=== PATIENT | female | born 1945 | race Caucasian/White ===

== ENCOUNTER 2016-08-18 10:29 | Emergency (ER) | payer OTHER ==
[~2016-08-18] VITALS: Ht 157.5 cm; Wt 101.0 kg
[2016-08-18 10:37] VITALS: BP 139/76; PULSE 67; RESP 12; O2SAT 95
--- NOTE | 2016-08-18 11:26 | ED.REPORT ---
HPI-General Illness Date of Service Aug 18, 2016 ED Provider: Dr. Pelayo Pt is a 71 y/o female with a history of Muhammad's Palsy, hyperlipidemia, diabetes, hypertension, vertigo presenting to the ED with her due to vision changes onset 0400 this morning. Pt reports seeing pulsating flashes, and flashing lights in both eyes without complete vision loss. Pt went to bed 30 minutes later and woke up again at 0700 reporting the same symptoms accompanied by spinning/,sensation dizziness that reminds her of vertigo, light-headedness, and nausea. Her symptoms were exacerbated when going from a dimly light room to a well lit one. Pt reports an increased pressure up and around the left side or her face. Her symptoms almost completely resolved after 1 hour although at time of interview her left eye still feels slightly blurry. She has had cold-like symptoms recently including mild cough, mild headache, and generalized weakness. She denies aphasia, focal numbness or weakness, slurred speech. She has never experienced similar symptoms and she has no history of migraines. Nursing Notes Stated Complaint: HX OF STROKE,CHANGES IN VISION,HEADACHE Chief Complaint: General Complaint Nursing Notes Reviewed: Yes Allergies: Coded Allergies: Sulfa (Sulfonamide Antibiotics) (Verified Allergy, Severe, rash and breathing problems, 08/18/16) Scheduled Amoxicillin/Clav K 875-125 mg (Augmentin 875-125 mg) 1 Each Tablet 1 TABLET PO BID Azithromycin (Zithromax) 250 Mg Tablet 250 MG PO DAILY General Time Seen by MD: 11:26 Chief Complaint Other (Vision changes) Hx Obtained From: Patient, Spouse Arrived By: Walk-in Sudden in Onset?: Yes Onset Occurred: 5 - 8 hours ago Symptom Duration: Since onset Location: : Eye left Quality: Pressure Radiation: : Does not radiate Severity: Current: Mild Severity: Maximum: Mild Similar Sx Previous: No Past Medical History Past Medical History Diabetes Muhammad's Palsy hyperlipidemia hypertension vertigo Past Surgical History Cardiac catheterization Smoking History Never Smoker Social History Alcohol Use: "Social" Other Social History: Ambulatory Status Independent Review of Systems + facial pressure Full Review of Systems Constitutional: Reports: Weakness - generalized Eyes: Reports: Blurred bilateral, Photophobia Respiratory: Reports: Non-productive cough GI: Reports: Nausea Neurologic: Reports: Dizziness, Headache, Lightheaded, Spinning sensation, Vision change, Denies: Focal weakness, Numbness, Slurred speech, Unable to speak Complete sys rev & neg: except as marked. Physical Exam Vital Signs Vital Signs Date Time Temp Pulse Resp B/P Pulse Ox O2 Delivery O2 Flow Rate FiO2 08/18/16 17:16 62 16 152/60 96 Room Air 08/18/16 14:24 36.6 68 16 150/55 97 Room Air 08/18/16 10:37 36.1 67 12 139/76 95 Room Air Initial VS: Reviewed ENT: Mucous membranes moist, Conjunctiva normal, No scleral icterus Neck: Full range of motion Respiratory: Breath sounds normal, Clear to auscultation, No respiratory distress Cardiovascular: Regular rate & rhythm, Heart sounds normal, Intact distal pulses Abdomen / GI: Soft Skin: Warm, Dry, No cyanosis Psychiatric: Mood/affect normal, Behavior normal, Normal thought content General/Constitutional: Awake, Alert, No acute distress, Well appearing, Cooperative Head / Eyes: Atraumatic, Normocephalic, PERRL, EOMI, No nystagmus, No periorbital redness, No periorbital swelling, No photophobia, No scleral icterus , Conjunctiva NL, Visual acuity NL Neurologic: Oriented X3, Speech NL, No motor deficits, No sensory deficits, CN II - XII intact, Cerebellar NL, Memory NL Interpretation & Diagnostics Lab Results Interpretation Result Diagram: 08/18/16 1150 08/18/16 1150 Test 08/18/16 11:50 08/18/16 12:15 08/18/16 12:34 White Blood Count 78.2th/mm3 (3.8-10.1) Red Blood Count 4.82mil/mm3 (3.90-5.20) Hemoglobin 12.5g/dL (12.0-15.6) Hematocrit 39.7% (35.0-46.0) Mean Corpuscular Volume 82.4fL (81-100) Mean Corpuscular Hemoglobin 25.9pg (27.0-35.0) Mean Corpuscular Hemoglobin Concent 31.5% (32.0-37.0) Red Cell Distribution Width 21.3% (12.3-15.4) Platelet Count 593bil/L (150-400) Neutrophils (%) (Auto) 60% (40-74) Lymphocytes (%) (Auto) 11% (14-46) Monocytes (%) (Auto) 2% (4-12) Eosinophils (%) (Auto) 3% (0-5) Basophils (%) (Auto) 5% (0-3) Band Neutrophils % 8% (1-5) Metamyelocytes % 6% (0-0) Myelocytes % 5% (0-0) Sodium Level 142mEq/L (134-144) Potassium Level 4.3mEq/L (3.5-5.2) Chloride Level 106mEq/L (97-108) Carbon Dioxide Level 22mmol/L (18-29) Blood Urea Nitrogen 24mg/dL (8-27) Creatinine 0.58mg/dL (0.57-1.00) Estimat Glomerular Filtration Rate 147mL/min (>59) Glucose Level 181mg/dL (60-99) Calcium Level 9.4mg/dL (8.5-10.1) Total Bilirubin 0.9mg/dL (0.0-1.2) Aspartate Amino Transf (AST/SGOT) 30U/L (0-50) Alanine Aminotransferase (ALT/SGPT) 26U/L (0-32) Alkaline Phosphatase 86U/L (25-165) Total Protein 6.9g/dL (6.4-8.4) Albumin 3.8g/dL (3.4-5.0) Hold Purple Top Tube Received (Received) Hold Blue Top Tube Received (Received) Hold Red Top Tube Received (Received) Hold Hayti Top Tube Received (Received) Hold Monge Top Tube Received (Received) Hold Urine Received (Received) ECG Interpretation Interpreted by: ED physician Normal ECG Interpretation: Normal ECG w/ rate of... (63), Normal rate, Normal sinus rhythm, No acute ischemic changes, Normal QRS, Normal axis, Normal intervals, Adequate tracing X-Ray Chest Interpretation Chest Xray Interpretation: IMPRESSION: Faint appearance of right basilar and retrocardiac opacities. While these could represent areas of atelectasis, developing airspace disease such as pneumonia could be considered. Dictated by: Bruna Payan M.D. on 08/18/2016 at 13:33 Approved by: Bruna Payan M.D. on 08/18/2016 at 13:33 View: Portable, 1 view Interpretation / Wet Read by: Interpret - Radiologist CT Head Interpretation IMPRESSION: 1. No acute intracranial findings. 2. Mild findings likely associated with chronic microvascular ischemic changes. Dictated by: Kimmie Valentine M.D. on 08/18/2016 at 13:55 Approved by: Kimmie Valentine M.D. on 08/18/2016 at 13:55 Study: Head CT no contrast Interpretation / Wet Read by: Interpret - Radiologist Re-Eval/Medical Decision Med Decision/Clinical Course Highly suspicious for leukemia, may also have pneumonia. augmentin and zithromax given. Patient is seen by hematology oncology while in the ER who will help to arrange a bone marrow biopsy in the next 2 days. Overall these episodes of vertigo with lights flashing do not sound like a stroke, and the patient has returned to baseline. She is stable for discharge. Return precautions given Time of Eval: 14:26 Re-Evaluation/Progress Note: Pt re-checked. Reports feeling weakness. All other signs are normal. Time of Eval: 17:00 Re-Evaluation/Progress Note: Pt rechecked. Informed pt of plan for treatment. Pt understands and agrees with plan for treatment. F/U and RTER warnings given. All questions addressed. Consultation #1: Referral / Consult Name: Panda Kenyon MD Call Returned at: 14:28 Analytical Data Miner: Agrees with eval, Agrees with plan Note: Consulted with Heme Oncologist. Will visit Patient in ER today. He would like an oupatient bone marrow biopsy to be performed. Consultation #2: Referral / Consult Name: Ivania Hull MD Consulted With: Neurology Call Returned at: 15:00 Analytical Data Miner: Agrees with eval, Agrees with plan Note: She agrees with plan for eval and does not believe she needs an MRI at this point. Counseled Regarding: Diagnosis, Lab results, Need for follow-up, When/why to return to ED Discharge & Departure Primary Impression: Pneumonia Pneumonia type: due to unspecified organism Laterality: right Lung location : lower lobe of lung Qualified Code: J18.9 - Pneumonia, unspecified organism Additional Impressions: Leukocytosis Leukocytosis type: unspecified Qualified Code: D72.829 - Elevated white blood cell count, unspecified Vertigo Disposition: Home Discharge Condition All VS Reviewed: Yes Condition: Stable Additional Instructions: Take Augmentin and azithromycin as prescribed. Take an aspirin daily. Call the oncologist in the morning for a close follow-up appointment in plan for bone marrow biopsy. Return to ER as needed for any worsening symptoms. Referrals: Marilou Rainey DO (PCP) Frannie Attestation Portions of this note were transcribed by Luis Carlos Evans and Vicente Weston. I , Dr. Pelayo personally performed the history, physical exam and medical decision-making; I reviewed and confirmed the accuracy of the information in the transcribed note. Signed by: Luis Carlos Evans and Frannie Casper, [08/18/16] and [[id number]]. copies to: Marilou Rainey Timothy S DO Aug 18, 2016 11:26 Luis Carlos Evans Aug 18, 2016 12:11 VICENTE WESTON Aug 18, 2016 15:00
[2016-08-18] MEDS ORDERED: 0.9% Sodium Chloride 1,000 ML IV ONE (11:45)
[2016-08-18 12:51] LABS: Mean Corpuscular Hemoglobin 25.9 pg (27.0-35.0); Mean Corpuscular Volume 82.4 fL (81-100); Platelet Count 593 bil/L (150-400)
[2016-08-18 13:13] LABS: BASOPHILS % (AUTO) 5 % (0-3); EOSINOPHILS % (AUTO) 3 % (0-5); MONOCYTES % (AUTO) 2 % (4-12); NEUTROPHILS % (AUTO) 60 % (40-74)
--- NOTE | 2016-08-18 13:35 | DRSVH ---
PROCEDURE: X-RAY CHEST, TWO VIEWS ([id number]) INDICATIONS: sob/cough TECHNIQUE: 2 views of the chest were acquired. COMPARISON: [facility], CR, XR CHEST 2VW, 07/24/2015, 14:00. FINDINGS: Surgical changes and devices: None. Lungs and pleura: There is a faint appearance of right basilar and retrocardiac opacities. Overall ap pearance appears slightly more prominent when compared to prior exam. Mediastinum: Mediastinal contours are normal. Heart size is normal. Bones and chest wall: No suspicious bony abnormalities. Soft tissues appear unremarkable. IMPRESSION: Faint appearance of right basilar and retrocardiac opacities. While these could represent areas of atelectasis, developing airspace disease such as pneumonia could be considered. Dictated by: Bruna Payan M.D. on 08/18/2016 at 13:33 Approved by: Bruna Payan M.D. on 08/18/2016 at 13:33
--- NOTE | 2016-08-18 13:57 | DRSVH ---
PROCEDURE: CT BRAIN WITHOUT CONTRAST ([id number]) INDICATIONS: dizziness TECHNIQUE: Noncontrast 4.5 mm thick angled axial sections acquired from the foramen magnum to the vertex, with c oronal reformats. COMPARISON: [facility], CT, BRAIN W/O CONTRAST, 10/02/2010, 14:45. FINDINGS: Image quality: Excellent. CSF spaces: Basal cisterns are patent. No extra-axial fluid collections. The ventricles are symmet khalida in size and shape. Brain: No intracranial bleeds or masses. There is cerebral volume loss for age, with resultant vent ricular and sulcal prominence. There are periventricular and deep white matter chronic small vessel ischemic changes. There is intracranial internal carotid artery atherosclerosis. Skull and face: Calvarium and visualized facial bones appear intact, without suspicious lesions. Sinuses: Visualized sinuses and mastoids are clear. IMPRESSION: 1. No acute intracranial findings. 2. Mild findings likely associated with chronic microvascular ischemic changes. Dictated by: Kimmie Valentine M.D. on 08/18/2016 at 13:55 Approved by: Kimmie Valentine M.D. on 08/18/2016 at 13:55
[2016-08-18 14:24] VITALS: BP 150/55; PULSE 68; RESP 16; O2SAT 97
[2016-08-18] MEDS ORDERED: Amoxicillin-Clav 875-125 mg Tablet PO ONE (15:10)
[2016-08-18] MEDS ORDERED: AMOX-366 PO (16:57)
[2016-08-18] MEDS ORDERED: ZIT250 PO (16:57)
[2016-08-18 17:16] VITALS: BP 152/60; PULSE 62; RESP 16; O2SAT 96
--- NOTE | 2016-08-18 18:07 | HP ---
[address] [address] HISTORY AND PHYSICAL PATIENT: CARRIE ARRIAZA : 1945 MR#: [id number] ADMIT: 08/18/2016 JOB ID: [id number] DATE OF SERVICE: 08/18/2016 This was a consultation from Dr. Pelayo in the emergency department. REASON FOR CONSULTATION: A 71-year-old woman who presents with visual disturbance, along with dizziness, lightheadedness and nausea and the finding of a white cell count of 78,200 with mostly neutrophils and immature myeloid forms. The potential for leukemia versus leukemoid reaction. The symptoms of dizziness and visual disturbance have abated. DIAGNOSES: 1. Leukocytosis mainly neutrophilic with immature forms, suspect leukemoid reaction versus underlying leukemia, possibly chronic myeloid leukemia. 2. Visual disturbances and other central nervous system symptoms associated with the high white count, now resolved. 3. The patient has a history of diabetes. 4. Other history including hypertension and hyperlipidemia, Muhammad's palsy, all obtained by Dr. Pelayo as well as cardiac catheterization. 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 In the past two days, she has developed illness associated with lightheadedness and nausea which worsened and as Dr. Pelayo described pulsating flashing lights in both eyes at 4 in the morning and again at 7 in the morning, similar symptoms which led her to come to the emergency department. At the time she was seen in the emergency department, her vital signs were stable with a blood pressure of 139/76, pulse 67, respiratory rate 12, pulse ox 95% and an unremarkable physical examination. In addition to the high white count, she had a high platelet count of 593,000, a BUN 24, creatinine 0.58, normal electrolytes, hemoglobin 12.5, hematocrit 39.7. AST, ALT, alkaline phosphatase and bilirubin normal. Calcium 9.4. Uric acid pending. She was seen to be stable and Hematology was called for further evaluation. ALLERGIES: Reviewed. She reports an allergy to SULFA. MEDICATIONS: 1. Amoxicillin. 2. Clavulanate one tablet b.i.d. 3. Azithromycin 250 mg. There are no recent outpatient notes available. REVIEW OF SYSTEMS: The patient now feels well. She is lying comfortably on the bed in the emergency department. She complains of no headache or visual changes, nausea, increased abdominal girth, easy bleeding or bruising or recent febrile illnesses. PHYSICAL EXAMINATION: In the emergency department, the temp was 36.6, pulse 68, respiratory rate 16, blood pressure 150/55, pulse ox 97% on room air. In general, she looks comfortable and is talkative and appears to be a good historian. Head and neck: Pupils equal, round, reactive. No icterus. No conjunctivitis. Oral mucosa is pink and moist. Neck is supple without thyromegaly. Lung cummings are clear to auscultation anteriorly and laterally. Cardiac: Rhythm is regular without murmur or peripheral edema. Abdomen: Protuberant. I do not appreciate hepatomegaly or splenomegaly on deep palpation. Extremities: Without effusions or tenderness. LABORATORY VALUES: Are as noted above. IMAGING PROCEDURE: Review of the peripheral blood smear reveals a neutrophilic leukocytosis with abundant myelocytes, metamyelocytes, promyelocytes and basophils along with a thrombocytosis. ASSESSMENT AND RECOMMENDATIONS: This is a 71-year-old woman with recent development of leukocytosis with associated central nervous system symptoms. At this time, the symptoms have abated and we will try to get her in for a bone marrow examination. In addition, draw a BCR/ABL for PCR as soon as possible. There does not appear to be any acute infection, although his chest x-ray did show some faint retrocardiac densities. Should she recur with symptoms, it would be necessary to hospitalize her and treat her with hydroxyurea to bring the white count down, but if the bone marrow is to be done it would be better to do this before hydroxyurea is initiated. I counseled the patient a little bit about possible differential diagnosis including a leukemoid reaction or a form of leukemia, and she understands and wishes to proceed forward with workup.
[2016-08-20] MEDS ORDERED: LIP40 PO (08:41)
[2016-08-20] MEDS ORDERED: LISI-567 PO (08:41)
[2016-08-20] MEDS ORDERED: CANA100T PO (08:41)
[2016-08-20] MEDS ORDERED: METF1000 PO (08:41)
[2016-08-20] MEDS ORDERED: INSU100I13 SUBQ (08:41)
[2016-09-24] MEDS ORDERED: IMAT400T PO (08:40)
== END 2016-08-18 17:17 | disposition home or self-care (01) ==
LOC: SED 10:29
DX: J18.9 Pneumonia, unspecified organism (principal); D72.829 Elevated white blood cell count, unspecified; R42 Dizziness and giddiness; E11.9 Type 2 diabetes mellitus without complications; E78.5 Hyperlipidemia, unspecified; I10 Essential (primary) hypertension; Z95.818 Presence of other cardiac implants and grafts; Z88.2 Allergy status to sulfonamides
CPT/HCPCS: 36415; 70450; 71020; 80053; 82948; 85007; 85025; 93005; 96360; 99285; J7030